=== PATIENT | male | born 1935 | race Caucasian/White ===

== ENCOUNTER 2023-04-01 22:00 | Inpatient (IN) | payer MEDICARE, OTHER, SELFPAY ==
--- NOTE | ~2023-04-01 | CT_ITS ---
CT of the Abdomen and Pelvis: Indication: Bleeding per rectum Technique: 2.5 mm axial scans were obtained through the abdomen and pelvis following intravenous adm inistration of 100 cc of Omnipaque 350. Dose reduction technique was used on this scan by utilizing a utomated exposure control and iterative reconstruction technique. The dose-length product (DLP) was 3 92.54 mGy-cm. Findings: Scans through the lung bases are unremarkable. The liver, spleen, pancreas, adrenals and kidneys are within normal limits. Gallbladder appears to be absent. There are atherosclerotic calcifications of the aorta. No lymphadenopathy. No bowel obstruction or bowel wall thickening. There is prominent stool at the rectum. There is no ev idence to suggest acute appendicitis. Images through the pelvis are degraded by streak artifact from right hip arthroplasty. Urinary bladde r unremarkable. No ascites. Impression: Probable fecal impaction/constipation. No acute findings evident. Reviewed, dictated and finalized at [facility]. Impression: Probable fecal impaction/constipation. No acute findings evident.
--- NOTE | ~2023-04-01 | XR_ITS ---
Portable chest x-ray Comparison: 12/26/2018 Clinical History: Chest pain Findings: Lungs are clear, without focal consolidation or pleural effusion. Cardiomediastinal silho uette is stable, status post CABG. Bones and soft tissues are unremarkable. Impression: Clear lungs. Reviewed, dictated and finalized at location . Impression: Clear lungs.
--- NOTE | ~2023-04-01 | XR_ITS ---
XR abdomen/kub 1V 04/02/2023 10:08 INDICATION: Fecal impaction TECHNIQUE: KUB COMPARISON: None FINDINGS: Bowel gas pattern is normal. There is no evidence of free air, mass, organomegaly, ascites or obstruction. No abnormal calculi are seen. The bones appear intact. There is a right hip arthro plasty. Severe lumbar spondylosis. 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 IMPRESSION: 1: No acute abdominal abnormality identified. Reviewed, dictated and finalized at location B.
[2023-04-01 22:06] VITALS: BP 181/88; PULSE 105; RESP 16; TEMP 37.4; O2SAT 97
--- NOTE | 2023-04-01 23:48 | ED.GIBLEED ---
HPI - GI Bleed General Chief complaint: GI Bleed <Marlen Cope PA-C - Last Filed: 04/02/23 17:03> Stated complaint: constipation, bright red rectal bleeding <Marlen Cope PA-C - Last Filed: 04/02/23 17:03> Time Seen by Provider: 04/01/23 23:16 <Marlen Cope PA-C - Last Filed: 04/02/23 17:03> History of Present Illness HPI Narrative: 87-year-old male reports for evaluation of bright red blood per rectum and diarrhea that started today after he took a laxative. Patient states he felt like he was constipated, took a laxative and has had multiple episodes of diarrhea since with bright red blood on the toilet paper with bowel movements and associated rectal pain. He denies abdominal pain, nausea or vomiting, melena, fever. While in the ED, he began complaining of chest pain, lasting seconds over his left anterior chest that occurred while he was laying in the exam bed. He has not experienced any more CP while in the ED. Denies shortness of breath, focal numbness or weakness. States he is not on a blood thinner. <Marlen Cope PA-C - Last Filed: 04/02/23 17:03> Related Data Home medications: Home Medications Medication Instructions Recorded Confirmed acetaminophen 650 mg tablet 650 mg PO Q6H PRN Pain (Scale 04/03/23 04/03/23 Score 1-3) alendronate 70 mg tablet 70 mg PO WEEKLY 04/03/23 04/03/23 calcium carbonate 500 mg calcium 1,000 mg PO DAILY 04/03/23 04/03/23 (1,250 mg) tablet cholecalciferol (vitamin D3) 25 1,000 unit PO DAILY 04/03/23 04/03/23 mcg (1,000 unit) capsule (Vitamin D3) metoprolol tartrate 25 mg tablet 25 mg PO BID 04/03/23 04/03/23 pantoprazole 40 mg tablet,delayed 40 mg PO Q12H 04/03/23 04/03/23 release vitamins A,C,X-ugtn-qbasan 2,148 1 tablet PO BID 04/03/23 04/03/23 mcg-113 mg-45 mg-17.4 mg tablet (PreserVision AREDS) <Marlen Cope PA-C - Last Filed: 04/02/23 17:03> Allergies/Adverse reactions: Allergies Allergy/AdvReac Type Severity Reaction Status Date / Time No Known Allergies Allergy Unknown Verified 04/03/23 07:34 <Marlen Cope PA-C - Last Filed: 04/02/23 17:03> Review of Systems Review of Systems: CONSTITUTIONAL: Denies fever, chills EYES: Denies visual changes, redness, or discharge. ENT: Denies rhinorrhea, congestion, sore throat, or otalgia. CARDIOVASCULAR: Denies chest pain, palpitations, or edema. RESPIRATORY: Denies cough or dyspnea. GASTROINTESTINAL: See HPI GENITOURINARY: Denies dysuria or hematuria. SKIN: Denies rash or itching. MUSCULOSKELETAL: Denies back pain, joint pain, or myalgia. NEUROLOGIC: Denies headache, numbness, dizziness, or weakness. PSYCHIATRIC: Denies anxiety or depression. <Marlen Cope PA-C - Last Filed: 04/02/23 17:03> [facility] Surgical History Surgical History: Surgical History (Updated 04/03/23 @ 07:22 by Moises Santos MD) Hx of CABG <Marlen Cope PA-C - Last Filed: 04/02/23 17:03> Social History Social History: Social History Smoking packs per day: 1 Smoking cigarettes per day: 20.0 Years smoked: 40 Smoking pack-years: 40.00 Smoking status: Former smoker Alcohol intake: former Substance use: current Lack of Transportation: No Lack of Food: Never True Current Housing: I Have Housing Concerned About Future Housing: No Difficulty Paying Gas/Electric Bills: No Difficulty Paying for Meds: No Currently Unemployed: No Education: Grade School Difficulty w/ Childcare or Family Care: No Spiritual care concerns: No <Marlen Cope PA-C - Last Filed: 04/02/23 17:03> Exam Narrative: GENERAL: Well-appearing, in no acute distress. Patient resting comfortably in exam bed. He is pleasant and conversational. HEAD: Normocephalic EYES: PERRLA ENT: Nares clear. Mucous membranes moist. Oropharynx without tonsillar hypertrophy exudate or other lesion
[2023-04-02] VITALS (12 sets, daily range): BP systolic 118–170; BP diastolic 67–75; PULSE 62–95; RESP 16–18; TEMP 36.4–37; O2SAT 95–100; BMI 19.9
--- NOTE | 2023-04-02 00:20 | ECG_ITS ---
Measurements Intervals [place] Rate: 107 P: UT: 0 QRS: 64 QRSD: 103 T: 6 QT: 358 QTc: 478 Interpretive Statements ATRIAL FIBRILLATION WITH RAPID VENTRICULAR RESPONSE VENTRICULAR PREMATURE COMPLEXES VOLTAGE CRITERIA FOR LVH BORDERLINE ST-T WAVE ABNORMALITY- ANTEROLAT/INF LEADS ABNORMAL ECG COMPARED TO ECG 12/26/2018 08:46:10 HEART RATE HAS INCREASED ST (T WAVE) DEVIATION NOW PRESENT Electronically Signed On 04-02-2023 7:37:07 CDT by John Garcia D.O.
[2023-04-02 00:29] LABS: Basophils Percent Auto 0.2 % (0.2-1.2); Eosinophils Percent Auto 0.2 % (0-4.4); Hematocrit 47.4 % (42.0-52.0); Hemoglobin 15.9 g/dL (14.0-18.0); Immature Granulocyte Absolute 0.05 K/mm3 (0.00-0.031); Immature Granulocyte Percent A 0.3 % (0-0.5); Lymphocytes Absolute Auto 0.72 K/mm3 (0.9-3.2); Lymphocytes Percent Auto 4.9 % (18.3-44.2); Mean Corpuscular HGB Conc 33.5 g/dl (32-36); Mean Corpuscular Hemoglobin 32.1 pg (26-34); Mean Corpuscular Volume 95.6 fl (80-100); Mean Platelet Volume 10.3 fl (7.4-10.4); Monocytes Absolute Auto 1.2 K/mm3 (0.1-0.6); Monocytes Percent Auto 8.5 % (2.6-8.5); Neutrophils Absolute Auto 12.6 K/mm3 (1.3-6.7); Neutrophils Percent Auto 85.9 % (45.5-73.1); Platelet Count Result 224 k/mm3 (150-375); Red Blood Count 4.96 M/mm3 (4.6-6.20); Red Cell Distribution Width 13.6 % (11.5-14.5); White Blood Count 14.7 K/mm3 (4.5-10.0)
[2023-04-02] MEDS: ACETAMINOPHEN 500 MG TABLET 1000 MG PO (00:29)
[2023-04-02] MEDS: SODIUM CHLORIDE 0.9% IV 1,000 ML 999 ML IV CONT (00:30)
[2023-04-02 00:48] LABS: Partial Thromboplastin Time 26.3 SECONDS (22.3-36.8)
[2023-04-02 00:52] LABS: Alanine Aminotransferase 18 U/L (6-50); Alkaline Phosphatase 94 U/L (38-126); Anion Gap 8 mmol/L (8-16); Aspartate Amino Transferase 35 U/L (17-59); Bilirubin,Total 1.5 mg/dL (0.2-1.3); Blood Urea Nitrogen 9 mg/dL (9-20); Calcium 8.8 mg/dL (8.4-10.2); Carbon Dioxide 26 mmol/L (22-30); Chloride 104 mmol/L (98-107); Estimated CRCL calculation 57 ml/min; Estimated Glomerular Filt Rate > 60; Glucose 115 mg/dL (65-110); Lipase 44 U/L (23-300); Potassium 3.5 mmol/L (3.4-5.0); Sodium 138 mmol/L (137-145)
[2023-04-02 01:08] LABS: NT Pro B Type Natriuretic Pept 2420 pg/mL (19.9-100); Troponin I 0.036 ng/mL (0.000-0.034)
[2023-04-02 03:23] LABS: Troponin I 0.118 ng/mL (0.000-0.034)
--- NOTE | 2023-04-02 03:43 | ECHO_ITS ---
Patient Info Name: Sukhwinder Blanco Age: 87 years : 1935 Gender: Male Ht: 69 in Wt: 158 lbs BSA: 1.87 m2 HR: 83 bpm BP: 150 / 75 mmHg Heart Rhythm: Atrial Fibrillation Technical Quality: Fair Exam Date: 04/02/2023 10:06 AM Exam Location: [facility] Pulmonary Patient Status: Inpatient Admit Date: 04/02/2023 Staff Ordering Physician: Kimmie Engle M.A., MD Panel Machine Setter: Estefania Lau RDCS Attending Provider: Rl Juarez MD Referring Physician: Bryant MCKEON; Exam Type: CA echo doppler color flow Study Info Indications - elevated troponin Complete two-dimensional, color flow and Doppler transthoracic echocardiogram is performed. Summary 1. Complete two-dimensional, color flow and Doppler transthoracic echocardiogram is performed. 2. Normal left ventricular size with concentric LVH and good systolic function. 3. Severe left atrial enlargement. 4. Aortic valve stenosis which appears moderate on 2D and M-mode imaging and severe on Doppler. 5. Atrial fibrillation. Left Ventricular Outflow Tract Name Value Normal LVOT 2D LVOT Diameter 1.7 cm LVOT Doppler LVOT Peak Gradient 2 mmHg LVOT Mean Gradient 1 mmHg LVOT VTI 9 cm LVOT VTI/AV VTI Ratio 0.2 LVOT Stroke Volume 21 ml LVOT CO 1.3 l/min LVOT CI 0.7 l/min/m2 Pulmonic Valve Name Value Normal RVOT Doppler RVOT Peak Gradient 2 mmHg PV Doppler PV Peak Gradient 4 mmHg Mitral Valve Name Value Normal MV Doppler MV Decel Comal 273 cm/s2 MV PHT 76 ms MV Area (PHT) 2.9 cm2 4.0-5.0 MV Regurgitation Doppler MR Peak Gradient 125 mmHg MV Diastolic Function MV E Peak Velocity 72 cm/s MV A Peak Velocity 1 cm/s MV E/A 87.9 MV Decel Time 262 ms MV Annular TDI MV E/e' (Septal) 11.1 <=8.0 MV E/e' (Lateral) 7.0 <=8.0 MV E/e' (Average) 9.1 Tricuspid Valve
--- NOTE | 2023-04-02 03:47 | PM.IMHP ---
H&P: HPI History of Present Illness Date/Time: 04/02/23 03:47 Chief Complaint: 87 years old male presented to the hospital with bleeding per rectum of fresh blood started today patient was complaining of constipation patient took laxative start have multiple episodes of diarrhea then has episode of bleeding per rectum patient denies fever or chills at the ER patient had 1 episode of transient chest pain on the left side no radiation lasted for few seconds while the ER physician was examining the patient troponin was mildly elevated, CT scan of the abdomen and pelvis was done shows stool impaction with possible stercoral colitis patient was admitted to the hospital for further evaluation and treatment of chest pain associated with elevated troponin stool impaction associated with stercoral colitis. patient said that he takes multiple medication in the past who was also on oral anticoagulation but was stopped patient is poor historian pending old records Review of Systems Review of Systems: Patient is poor historian Meds Home Medications and Allergies Allergies Allergy/AdvReac Type Severity Reaction Status Date / Time No Known Allergies Allergy Unknown Verified 12/26/18 15:25 Vital Signs Vital Signs - 24 hr 04/01/23 22:06 Temperature 99.3 F Pulse Rate 105 H Respiratory Rate 16 Blood Pressure 181/88 H Pulse Oximetry 97 Exam Narrative: GENERAL: no acute distress. HEAD: Normocephalic, atraumatic. NECK: Supple. No adenopathy, no masses. RESPIRATORY: Airway patent, respirations nonlabored. Clear to auscultation bilaterally, no rales, rhonchi, wheezing. CARDIOVASCULAR: Regular rate and rhythm without murmurs, rubs, or gallops. Peripheral pulses 2+ and equal bilaterally. ABDOMINAL: Soft, nontender, nondistended, no hepatosplenomegaly. Normoactive BS. MUSCULOSKELETAL: moves all extremities SKIN: Warm, dry, normal color. No rashes. NEURO: alert moves all extremities PSYCHIATRIC: Appropriate mood and affect. Normal interaction. H&P: Results Labs Labs: Short CBC 04/02/23 Range/Units 00:02 WBC 14.7 H (4.5-10.0) K/mm3 Hgb 15.9 (14.0-18.0) g/dL Hct 47.4 (42.0-52.0) % Plt Count 224 (150-375) k/mm3 [facility] 04/02/23 04/02/23 04/02/23 00:02 00:02 00:02 Sodium Cancelled 138 Potassium Cancelled 3.5 Chloride Cancelled Carbon Dioxide BUN Creatinine Glucose Calcium 04/02/23 04/02/23 04/02/23 00:02 00:02 00:02 Sodium Potassium Chloride 104 Carbon Dioxide Cancelled 26 BUN Cancelled 9 Creatinine Cancelled Glucose Calcium 04/02/23 04/02/23 04/02/23 00:02 00:02 00:02 Sodium Potassium Chloride Carbon Dioxide BUN Creatinine 0.80 Glucose Cancelled 115 H Calcium Cancelled 8.8 Cardiac Enzymes 04/02/23 04/02/23 Range/Units 00:02 02:52 Troponin I 0.036 H* 0.118 H* D (0.000-0.034) ng/mL Liver Function 04/02/23 04/02/23 04/02/23 Range/Units 00:02 00:02 00:02 Total Bilirubin Cancelled 1.5 H AST Cancelled 35 ALT Cancelled Alkaline Phosphatase Albumin 04/02/23 04/02/23 04/02/23 Range/Units 00:02 00:02 00:02 Total Bilirubin AST ALT 18 Alkaline Phosphatase Cancelled 94 Albumin Cancelled 4.0 Assessment and Plan Assessment and plan (1) Fecal impaction: Code(s): K56.41 - Fecal impaction Status: Acute Assessment and Plan: associated with stercoral colitis and GI bleed give GoLYTELY GI consult IV antibiotics (2) Atrial fibrillation with RVR: Code(s): I48.91 - Unspecified atrial fibrillation Status: Acute Assessment and Plan: probable new onset AFib no plan for anticoagulation for now as patient has GI bleed as needed IV metoprolol cardiology eval TSH echo (3) Elevated troponin: Code(s): R77.8 - Other specified abnormalities of plasma proteins Status: Acute
--- NOTE | 2023-04-02 03:49 | PC.NURSE ---
Pt was unable to retain soap suds enema for longer than 2 minutes. Pt used his own fingers to manually disimpact himself. He passed a large amount of stool in the toilet and states he feels better.
--- NOTE | 2023-04-02 04:07 | PC.NURSE ---
Unable to complete med reconciliation d/tpt did not bring a list and he does not know what medications he takes. [facility] at this time.
--- NOTE | 2023-04-02 04:17 | PM.IMHP ---
H&P: HPI History of Present Illness Date/Time: 04/02/23 04:17 Chief Complaint: 87 years old male presented to the hospital with bleeding per rectum patient has constipation for the last few days started oral laxative developed episodes of diarrhea then patient has episode of bleeding per rectum with chunks of blood according to the patient in the past patient was on oral anticoagulation but currently he is not on any oral anticoagulation at the ER patient also was found to have AFib patient is poor historian did not confirm history of AFib also has elevated troponin has 1 episode of chest pain lasted for few seconds in the ER resulted with mild elevated troponin no significant EKG changes patient also has elevated BNP CT scan of the abdomen showed stool impaction with stercoral colitis patient was admitted the hospital for further evaluation and treatment of GI bleed hypertensive urgency leukocytosis chest pain with elevated troponin Review of Systems Review of Systems: Patient is poor historian Meds Home Medications and Allergies Allergies Allergy/AdvReac Type Severity Reaction Status Date / Time No Known Allergies Allergy Unknown Verified 12/26/18 15:25 Vital Signs Vital Signs - 24 hr 04/01/23 22:06 Temperature 99.3 F Pulse Rate 105 H Respiratory Rate 16 Blood Pressure 181/88 H Pulse Oximetry 97 Exam Narrative: GENERAL: no acute distress. HEAD: Normocephalic, atraumatic. NECK: Supple. No adenopathy, no masses. RESPIRATORY: Airway patent, respirations nonlabored. Clear to auscultation bilaterally, no rales, rhonchi, wheezing. CARDIOVASCULAR: Regular rate and rhythm without murmurs, rubs, or gallops. Peripheral pulses 2+ and equal bilaterally. ABDOMINAL: Soft, nontender, nondistended, no hepatosplenomegaly. Normoactive BS. MUSCULOSKELETAL: moves all extremities SKIN: Warm, dry, normal color. No rashes. NEURO: alert moves all extremities PSYCHIATRIC: Appropriate mood and affect. Normal interaction. H&P: Results Labs Labs: Short CBC 04/02/23 Range/Units 00:02 WBC 14.7 H (4.5-10.0) K/mm3 Hgb 15.9 (14.0-18.0) g/dL Hct 47.4 (42.0-52.0) % Plt Count 224 (150-375) k/mm3 [facility] 04/02/23 04/02/23 04/02/23 00:02 00:02 00:02 Sodium Cancelled 138 Potassium Cancelled 3.5 Chloride Cancelled Carbon Dioxide BUN Creatinine Glucose Calcium 04/02/23 04/02/23 04/02/23 00:02 00:02 00:02 Sodium Potassium Chloride 104 Carbon Dioxide Cancelled 26 BUN Cancelled 9 Creatinine Cancelled Glucose Calcium 04/02/23 04/02/23 04/02/23 00:02 00:02 00:02 Sodium Potassium Chloride Carbon Dioxide BUN Creatinine 0.80 Glucose Cancelled 115 H Calcium Cancelled 8.8 Cardiac Enzymes 04/02/23 04/02/23 Range/Units 00:02 02:52 Troponin I 0.036 H* 0.118 H* D (0.000-0.034) ng/mL Liver Function 04/02/23 04/02/23 04/02/23 Range/Units 00:02 00:02 00:02 Total Bilirubin Cancelled 1.5 H AST Cancelled 35 ALT Cancelled Alkaline Phosphatase Albumin 04/02/23 04/02/23 04/02/23 Range/Units 00:02 00:02 00:02 Total Bilirubin AST ALT 18 Alkaline Phosphatase Cancelled 94 Albumin Cancelled 4.0 Assessment and Plan Assessment and plan (1) Fecal impaction: Code(s): K56.41 - Fecal impaction Status: Acute Assessment and Plan: associated with stercoral colitis and GI bleed give GoLYTELY GI consult IV antibiotics (2) Atrial fibrillation with RVR: Code(s): I48.91 - Unspecified atrial fibrillation Status: Acute Assessment and Plan: probable new onset AFib no plan for anticoagulation for now as patient has GI bleed as needed IV metoprolol cardiology eval TSH echo (3) Elevated troponin: Code(s): R77.8 - Other specified abnormalities of plasma proteins Status: Acute Assessment a
--- NOTE | 2023-04-02 04:55 | ADMGEN ---
This patient, Sukhwinder Blanco, was admitted to IMU Room 202-01. Patient/family oriented to hospital policies and general routines including ID bracelet, bed and alarms, visiting hours, pain management, procedures, bathroom and other care routines, personal items, smoking policy, room service/diet, and visiting hours. Information on how to activate the Rapid Response Team has been discussed. Patient/Family are encouraged to report perceived risks to care and to ask questions if they do not understand what they are told or what they should do.
[2023-04-02] MEDS: FUROSEMIDE INJ 40 MG/4 ML VIAL IV PUSH (05:24)
[2023-04-02] MEDS: metroNIDAZOLE 500 MG/ISO 100ML 500 MG/100 ML BAG 100 MG IVPB (05:26)
[2023-04-02 07:15] LABS: Basophils Percent Auto 0.2 % (0.2-1.2); Eosinophils Percent Auto 0.2 % (0-4.4); Hematocrit 44.1 % (42.0-52.0); Hemoglobin 15.1 g/dL (14.0-18.0); Hemoglobin 15.4 g/dL (14.0-18.0); Immature Granulocyte Absolute 0.05 K/mm3 (0.00-0.031); Immature Granulocyte Percent A 0.4 % (0-0.5); Lymphocytes Absolute Auto 1.39 K/mm3 (0.9-3.2); Lymphocytes Percent Auto 10.9 % (18.3-44.2); Mean Corpuscular HGB Conc 33.5 g/dl (32-36); Mean Corpuscular Hemoglobin 31.8 pg (26-34); Mean Corpuscular Volume 94.8 fl (80-100); Mean Platelet Volume 9.9 fl (7.4-10.4); Monocytes Absolute Auto 1.2 K/mm3 (0.1-0.6); Monocytes Percent Auto 9.2 % (2.6-8.5); Neutrophils Percent Auto 79.1 % (45.5-73.1); Platelet Count Result 221 k/mm3 (150-375); Red Blood Count 4.85 M/mm3 (4.6-6.20); Red Cell Distribution Width 13.8 % (11.5-14.5); White Blood Count 12.7 K/mm3 (4.5-10.0)
[2023-04-02 07:30] LABS: Alanine Aminotransferase 17 U/L (6-50); Albumin Level 3.5 g/dL (3.5-5.1); Alkaline Phosphatase 83 U/L (38-126); Anion Gap 5 mmol/L (8-16); Aspartate Amino Transferase 29 U/L (17-59); Bilirubin,Total 1.5 mg/dL (0.2-1.3); Blood Urea Nitrogen 10 mg/dL (9-20); Calcium 8.2 mg/dL (8.4-10.2); Carbon Dioxide 27 mmol/L (22-30); Chloride 105 mmol/L (98-107); Estimated CRCL calculation 49 ml/min; Estimated Glomerular Filt Rate > 60; Glucose 107 mg/dL (65-110); Potassium 3.6 mmol/L (3.4-5.0); Sodium 137 mmol/L (137-145)
[2023-04-02 07:42] LABS: Troponin I 0.221 ng/mL (0.000-0.034)
[2023-04-02 07:48] LABS: CRP 1.3 mg/dL (<1.0)
[2023-04-02] MEDS: PANTOPRAZOLE SODIUM IV 40 MG VIAL IV PUSH ×2 (08:50→16:38)
[2023-04-02] MEDS: polyethylene glycoL 3350 238 GM BOTTLE PO (11:14)
--- NOTE | 2023-04-02 11:14 | PM.CNCAR ---
Assessment and Plan Assessment and plan (1) Elevated troponin: Code(s): R77.8 - Other specified abnormalities of plasma proteins Status: Acute Plan This is an elderly gentleman with longstanding coronary artery disease and probably has chronic atrial fibrillation from what he tells me. He enters the hospital here with some constipation and rectal bleeding. His troponin levels were slightly elevated I have no idea as to why they were drawn in the 1st place. He has reasonable heart rate control he is receiving some intravenous metoprolol. It is highly likely that he is receiving rate control medications from his physicians at the [facility]. At this point my only cardiac recommendation would be to obtain that medication list in place him back on the medications that his physicians have him on at the [facility]. Presumably he has a concern or at least a relative contraindication to anticoagulation since he remembers being on apixaban in the past and his physician at the [facility] stopping it for some reason. For that reason I do not believe it is prudent or appropriate for us to resume anticoagulation here at [place]. He does not require an ischemia workup since he has no ischemic symptoms. When the primary team is comfortable he can be discharged and I will presume he will continue to follow-up with his established physicians at the [facility] following discharge. Ayan Aguilar MD [facility] History of Present Illness History of Present Illness Consult date/time: 04/02/23 11:14 Reason For Visit: Fecal Impaction,Elevated Troponins,Atrial Fibrilla Narrative: This is an 87-year-old man I am seeing today at the request of the hospitalist because of atrial fibrillation and elevation of his troponin level. The patient is in the IMU resting comfortably and upon awakening feels well and does not have any complaints. He came to the hospital emergency room yesterday because of constipation and some rectal bleeding. The patient states that he does have occasional episodes of problematic constipation for which she uses laxatives as needed and typically can stimulate a good bowel movement and resolve the situation he came to emergency room because this was not working any was having some pain and rectal bleeding. He was not having any other symptomatology. When he came in to be evaluated it was noticed that he was in atrial fibrillation with a somewhat rapid ventricular response. For reasons that are not explained in the chart troponin levels were drawn the after elevated slightly to 0.2 that has triggered a consult for me to see him today. The patient says that he has a history of coronary artery disease and underwent coronary artery bypass grafting over [address] [facility]. He in recent years moved to this area and sees physicians at and terminal makeup operator at the [facility] where he receives his medical care. We have none of the records available to that at the time of this dictation. The patient is not sure about what medications he is on although he does remember being on apixaban in the past and that his physician at the [facility] had stopped the medication for reasons that are not available to us at this hospital. He has received orders for some intravenous beta-wendy and hydralazine for his heart rate and his blood pressure. None of his established/outpatient home medications are listed on chart he says he is on a variety of medications from his physicians at the [facility] but is not aware of any of the medications or the dosages. He reports that since his coronary bypass operation he has been doing well he does not remember being hospitalized for a cardiac problems in the intervening several decades. He he is not aware of the diagnosis of atrial fibrillation. He is currently in atrial fibrillation with a heart rate in the 80s and is hemodynamically stable. Review of Systems Constitutional: Constitutional: Reports no additional constitutional c
--- NOTE | 2023-04-02 12:12 | WPDGICN ---
Assessment and Plan Assessment and plan (1) Fecal impaction: Code(s): K56.41 - Fecal impaction Status: Acute Assessment and Plan: He states that he frequently becomes constipated but manages to deal with it with a mild laxative. This time it became impossible for him to pass stool except for slight oozing of liquid. (2) GI bleed: Code(s): K92.2 - Gastrointestinal hemorrhage, unspecified Status: Acute Assessment and Plan: He began passing blood yesterday with attempts to have a bowel movement. Although he has atrial fibrillation, he states that he is not at present time on anticoagulant therapy. Plan Will prescribe MiraLax solution as a bowel prep more last to help remedy constipation. GI Consult Note Consult date/time: 04/02/23 12:12 HPI: Sukhwinder Blanco is a 87 year old male Who presented to the emergency room with rectal bleeding and constipation. He took a laxative but had only few loose stools and several chunks of blood. The patient states he gets constipated from time to time but usually relieved with an oral laxative without difficulty. CT scan showed fecal impaction . he denies abdominal pain or rectal pain but does have pressure in her rectum. 4 L of GoLYTELY had been ordered by the emergency room physician but apparently not given to the patient. Review of Systems Review of Systems: All systems reviewed & are unremarkable except as noted in HPI and below PMFSH Social History Social History Smoking packs per day: 1 Smoking cigarettes per day: 20.0 Years smoked: 40 Smoking pack-years: 40.00 Smoking status: Former smoker Alcohol intake: former Substance use: current Lack of Transportation: No Lack of Food: Never True Current Housing: I Have Housing Concerned About Future Housing: No Difficulty Paying Gas/Electric Bills: No Difficulty Paying for Meds: No Currently Unemployed: No Education: Grade School Difficulty w/ Childcare or Family Care: No Spiritual care concerns: No Meds Home Medications and Allergies Allergies Allergy/AdvReac Type Severity Reaction Status Date / Time No Known Allergies Allergy Unknown Verified 12/26/18 15:25 Vital Signs Vital Signs - 24 hr 04/01/23 22:06 04/02/23 06:00 04/02/23 06:49 Temperature 37.4 C Pulse Rate 105 H 83 Respiratory Rate 16 Blood Pressure 181/88 H Pulse Oximetry 97 Oxygen Delivery Room Air 04/02/23 04:50 04/02/23 07:42 04/02/23 08:00 Temperature 36.8 C 36.9 C Pulse Rate 79 71 75 Respiratory Rate 16 16 Blood Pressure 150/75 H 118/73 Pulse Oximetry 97 95 100 Oxygen Delivery Room Air 04/02/23 08:00 04/02/23 10:00 Temperature Pulse Rate 78 76 Respiratory Rate Blood Pressure Pulse Oximetry Oxygen Delivery Exam Const: General: cooperative and healthy appearing Orientation/consciousness: patient oriented x3 HENMT: Head: normal to inspection Ears: hearing grossly normal bilaterally Mouth: Yes Normal oral and palatal mucosa present Eyes: General: appearance normal, both eyes and all related structures Neck: Neck: normal visual inspection Chest: Chest palpation & inspection: normal inspection of the chest Resp: Effort & Inspection: normal respiratory effort Auscultation: clear to auscultation bilaterally Cardio: Rate: regular rate Rhythm: regular rhythm GI: Inspection: normal to inspection GI Palp: Yes No hepatosplenomegaly present Auscultation: normal bowel sounds Skin: General skin exam: normal color and no jaundice Neuro: General: patient oriented x3 Speech: normal speech Results Labs 04/02/23 06:59 04/02/23 06:59 Labs: Short CBC 04/02/23 04/02/23 04/02/23 Range/Units 00:02 06:59 06:59 WBC 14.7 H 12.7 H (4.5-10.0) K/mm3 Hgb 15.9 15.1 15.4 (14.0-18.0) g/dL Hct 47.4 44.1 (42.0-52.0) % Plt Count 22
--- NOTE | 2023-04-02 15:22 | WPDGICN ---
Assessment and Plan Assessment and plan (1) GI bleed: Code(s): K92.2 - Gastrointestinal hemorrhage, unspecified Status: Acute Assessment and Plan: he began passing blood yesterday. He has had streaks of blood here. He states that he was passing chunks or clots at home. Hemoglobin is 15.4. We will continue to monitor. (2) Fecal impaction: Code(s): K56.41 - Fecal impaction Status: Acute Assessment and Plan: He has rectal discomfort and CT scan confirms what appears to be fecal impaction and stercoral proctitis (3) Constipation: Code(s): K59.00 - Constipation, unspecified Status: Acute Assessment and Plan: This is a chronic condition he generally treat with laxatives. He states that this time however was worse than ever and he is not having any success. (4) Perineal irritation: Code(s): L29.3 - Anogenital pruritus, unspecified Status: Acute Assessment and Plan: marked erythema in a radius of 5 cm from the anus. It is tender on palpation. No sign of abscess. (5) Leukocytosis: Code(s): D72.829 - Elevated white blood cell count, unspecified Status: Acute Assessment and Plan: white blood count was 14.7 yesterday 12.7 today. Etiology unknown Plan We have begun a bowel prep to help remove his impaction and give him relief. I will schedule him for colonoscopy to be done tomorrow morning. GI Consult Note Consult date/time: 04/02/23 15:22 HPI: Sukhwinder Blanco is a 87 year old male who presents emergency room complaining of rectal bleeding. He states he gets constipated from time to time but treats that with than [id number] laxative. This time the laxative did not work. He has been straining and passing blood. He is having pain in the rectal area. And has not passed any solid stools or several days. CT scan showed stool impaction with stercoral colitis. Patient does have atrial fibrillation but is not on anticoagulants at this time. He cannot recall when he had his last colonoscopy. Review of Systems Review of Systems: All systems reviewed & are unremarkable except as noted in HPI and below PMFSH Social History Social History Smoking packs per day: 1 Smoking cigarettes per day: 20.0 Years smoked: 40 Smoking pack-years: 40.00 Smoking status: Former smoker Alcohol intake: former Substance use: current Lack of Transportation: No Lack of Food: Never True Current Housing: I Have Housing Concerned About Future Housing: No Difficulty Paying Gas/Electric Bills: No Difficulty Paying for Meds: No Currently Unemployed: No Education: Grade School Difficulty w/ Childcare or Family Care: No Spiritual care concerns: No Meds Home Medications and Allergies Allergies Allergy/AdvReac Type Severity Reaction Status Date / Time No Known Allergies Allergy Unknown Verified 12/26/18 15:25 Vital Signs Vital Signs - 24 hr 04/01/23 22:06 04/02/23 06:00 04/02/23 06:49 Temperature 37.4 C Pulse Rate 105 H 83 Respiratory Rate 16 Blood Pressure 181/88 H Pulse Oximetry 97 Oxygen Delivery Room Air 04/02/23 04:50 04/02/23 07:42 04/02/23 08:00 Temperature 36.8 C 36.9 C Pulse Rate 79 71 75 Respiratory Rate 16 16 Blood Pressure 150/75 H 118/73 Pulse Oximetry 97 95 100 Oxygen Delivery Room Air 04/02/23 08:00 04/02/23 10:00 04/02/23 12:00 Temperature 37.0 C Pulse Rate 78 76 89 Respiratory Rate 18 Blood Pressure 133/70 Pulse Oximetry 98 Oxygen Delivery Exam Const: General: alert Orientation/consciousness: patient oriented x3 Resp: Auscultation: clear to auscultation bilaterally Cardio: Rhythm: regular rhythm GI: Inspection: normal to inspection GI Palp: Yes Soft to palpation, No Tenderness to palpation present (GI), Yes No hepatosplenomegaly present and No Palpable mass present
[2023-04-02] MEDS: BISACODYL 5 MG TABLET EC 10 MG PO ×2 (16:37→20:42)
[2023-04-03] VITALS (11 sets, daily range): BP systolic 110–153; BP diastolic 60–84; PULSE 62–92; RESP 18–23; TEMP 36.1–36.9; O2SAT 96–98
[2023-04-03] MEDS: POTASSIUM CHLORIDE 20 MEQ TABLET 40 MEQ PO (01:32)
[2023-04-03] MEDS: BISACODYL 5 MG TABLET EC 10 MG PO (02:27)
[2023-04-03 04:37] LABS: Basophils Percent Auto 0.3 % (0.2-1.2); Eosinophils Absolute Auto 0.5 K/mm3 (0-0.3); Eosinophils Percent Auto 4.6 % (0-4.4); Hematocrit 43.2 % (42.0-52.0); Hemoglobin 14.7 g/dL (14.0-18.0); Immature Granulocyte Absolute 0.02 K/mm3 (0.00-0.031); Immature Granulocyte Percent A 0.2 % (0-0.5); Lymphocytes Absolute Auto 1.85 K/mm3 (0.9-3.2); Lymphocytes Percent Auto 18.7 % (18.3-44.2); Mean Corpuscular Hemoglobin 31.9 pg (26-34); Mean Corpuscular Volume 93.7 fl (80-100); Mean Platelet Volume 10.1 fl (7.4-10.4); Monocytes Absolute Auto 1.1 K/mm3 (0.1-0.6); Monocytes Percent Auto 11.1 % (2.6-8.5); Neutrophils Absolute Auto 6.4 K/mm3 (1.3-6.7); Neutrophils Percent Auto 65.1 % (45.5-73.1); Platelet Count Result 202 k/mm3 (150-375); Red Blood Count 4.61 M/mm3 (4.6-6.20); Red Cell Distribution Width 13.6 % (11.5-14.5); White Blood Count 9.9 K/mm3 (4.5-10.0)
[2023-04-03 04:48] LABS: Alanine Aminotransferase 15 U/L (6-50); Albumin Level 3.3 g/dL (3.5-5.1); Alkaline Phosphatase 73 U/L (38-126); Anion Gap 5 mmol/L (8-16); Aspartate Amino Transferase 29 U/L (17-59); Bilirubin,Total 1.2 mg/dL (0.2-1.3); Blood Urea Nitrogen 7 mg/dL (9-20); Calcium 8.2 mg/dL (8.4-10.2); Carbon Dioxide 25 mmol/L (22-30); Chloride 104 mmol/L (98-107); Estimated CRCL calculation 53 ml/min; Estimated Glomerular Filt Rate > 60; Glucose 99 mg/dL (65-110); Magnesium 1.9 mg/dL (1.6-2.3); Potassium 3.3 mmol/L (3.4-5.0); Sodium 134 mmol/L (137-145)
--- NOTE | 2023-04-03 07:22 | WPDANESEPPF ---
Anes - Initial Pre Proc Eval Procedure: Operation Date: 04/03/23 08:00 Proposed Procedures p Colonoscopy - Ramirez Callejas MD Date/Time: 04/03/23 07:22 Surgeon: Rl Juarez MD Pre Op Diagnosis: Fecal Impaction,Elevated Troponins,Atrial Fibrilla Patient Data Age: 87 Gender: M Height: 1.75 m Weight: 58.6 kg Last Vital Signs Temp 36.3 C L 04/03/23 04:00 Pulse 82 04/03/23 06:00 Resp 18 04/03/23 04:00 BP 153/84 H 04/03/23 04:00 Pulse Ox 96 04/03/23 04:00 O2 Del Method Room Air 04/03/23 04:00 Allergies Allergy/AdvReac Type Severity Reaction Status Date / Time No Known Allergies Allergy Unknown Verified 12/26/18 15:25 Home Medications Medication Instructions Recorded Confirmed Type acetaminophen 650 mg tablet 650 mg PO Q6H PRN Pain (Scale 04/03/23 04/03/23 History Score 1-3) alendronate 70 mg tablet 70 mg PO WEEKLY 04/03/23 04/03/23 History calcium carbonate 500 mg calcium 1,000 mg PO DAILY 04/03/23 04/03/23 History (1,250 mg) tablet cholecalciferol (vitamin D3) 25 1,000 unit PO DAILY 04/03/23 04/03/23 History mcg (1,000 unit) capsule (Vitamin D3) metoprolol tartrate 25 mg tablet 25 mg PO BID 04/03/23 04/03/23 History pantoprazole 40 mg tablet,delayed 40 mg PO Q12H 04/03/23 04/03/23 History release vitamins A,C,E-surq-qydapj 2,148 1 tablet PO BID 04/03/23 04/03/23 History mcg-113 mg-45 mg-17.4 mg tablet (PreserVision AREDS) Laboratory Tests 04/02/23 04/03/23 06:59 04:16 WBC 9.9 K/mm3 (4.5-10.0) RBC 4.61 M/mm3 (4.6-6.20) Hgb 14.7 g/dL (14.0-18.0) Hct 43.2 % (42.0-52.0) MCV 93.7 fl (80-100) MCH 31.9 pg (26-34) MCHC 34.0 g/dl (32-36) RDW 13.6 % (11.5-14.5) Plt Count 202 k/mm3 (150-375) MPV 10.1 fl (7.4-10.4) Immature Gran % (Auto) 0.2 % (0-0.5) Neut % (Auto) 65.1 % (45.5-73.1) Lymph % (Auto) 18.7 % (18.3-44.2) [place] % (Auto) 11.1 H % (2.6-8.5) Eos % (Auto) 4.6 H % (0-4.4) Baso % (Auto) 0.3 % (0.2-1.2) Lymph # (Auto) 1.85 K/mm3 (0.9-3.2) [place] # (Auto) 1.1 H K/mm3 (0.1-0.6) Eos # (Auto) 0.5 H K/mm3 (0-0.3) Baso # (Auto) 0.0 K/mm3 (0.0-0.1) Abs Immat Gran (auto) 0.02 K/mm3 (0.00-0.031) Absolute Neuts (auto) 6.4 K/mm3 (1.3-6.7) Absolute Nucleated RBC 0.0 K/mm3 (0.0-0.012) Nucleated RBC % 0.0 % (0.0-0.2) Sodium 137 mmol/L 134 L mmol/L (137-145) (137-145) Potassium 3.6 mmol/L 3.3 L mmol/L (3.4-5.0) (3.4-5.0) Chloride 105 mmol/L 104 mmol/L (98-107) (98-107) Carbon Dioxide 27 mmol/L 25 mmol/L (22-30) (22-30) Anion Gap 5 L mmol/L 5 L mmol/L (8-16) (8-16) BUN 10 mg/dL 7 L mg/dL (9-20) (9-20) Creatinine 0.80 mg/dL 0.70 mg/dL (0.7-1.3) (0.7-1.3) Estim Creat Clear Calc 49 ml/min 53 ml/min Estimated GFR > 60 > 60 (59 - ) (59 - ) Glucose 107 mg/dL 99 mg/dL (65-110) (65-110) Calcium 8.2 L mg/dL 8.2 L mg/dL (8.4-10.2) (8.4-10.2) Magnesium 1.9 mg/dL (1.6-2.3) Total Bilirubin 1.5 H mg/dL 1.2 mg/dL (0.2-1.3) (0.2-1.3) AST 29 U/L 29 U/L (17-59) (17-59) ALT 17 U/L 15 U/L (6-50) (6-50) Alkaline Phosphatase 83 U/L 73 U/L (38-126) (38-126) Troponin I 0.221 H* D ng/mL (0.000-0.034) C-Reactive Protein 1.3 H mg/dL (<1.0) Total Protein 6.0 L g/dL 6.0 L g/dL (6.3-8.2) (6.3-8.2) Albumin 3.5 g/dL 3.3 L g/dL (3.5-5.1) (3.5-5.1) Patient hx anesthesia problems: none Family hx anesthesia problems: none Results Review: All pre-operative results and documents have been reviewed as part of the pre-operative evaluation. [facility] Surgical History Surgical History (Updated 04/03/23 @ 07:22 by Moises Santos MD) Hx of CABG Social History Social History (Reviewed 04/03/23 @ 07:22 by Moises
[2023-04-03] MEDS: LACTATED RINGERS 1,000 ML 150 ML IV CONT (07:24)
[2023-04-03] MEDS: ceFAZolin SODIUM 1 GM VIAL IV PUSH (07:25)
--- NOTE | 2023-04-03 07:47 | SUR.PHASEII ---
Pt pre op and recovery in Endo room 3.
[2023-04-03] MEDS: PANTOPRAZOLE SODIUM IV 40 MG VIAL IV PUSH (08:46)
--- NOTE | 2023-04-03 11:07 | PM.DS ---
DS: Admitting Diagnosis Discharge Date 04/03/2023 Admitting Diagnosis fecal impaction constipation DS: Discharge Diagnosis Discharge Diagnosis (1) Constipation: Code(s): K59.00 - Constipation, unspecified Status: Acute (2) Atrial fibrillation with RVR: Code(s): I48.91 - Unspecified atrial fibrillation Status: Acute (3) Fecal impaction: Code(s): K56.41 - Fecal impaction Status: Acute DS: Summary Hospital Course Hospital Course: Sukhwinder Blanco is a 87 year old male? who presents emergency room complaining of rectal bleeding.? He states he gets constipated from time to time but treats that with than lkgo-[id number] laxative.? This time the laxative did not work.? He has been straining and passing blood.? He is having pain in the rectal area.? And has not passed any solid stools or several days.? CT scan showed stool impaction with stercoral colitis.? Patient does have atrial fibrillation but is not on anticoagulants at this time.? He cannot recall when he had his last colonoscopy. GI was consulted. Patient underwent colonoscopy which showed rectal ulcer and internal hemorrhoids. Patient has been provided benzocaine for topical application. He has been advised to eat high-fiber diet and use MiraLax for constipation. cardiology was consulted for AFib but patient was not in AFib with RVR. Cardiology recommended to continue home medications and have the patient follow-up with his cage loader. Patient clinically stable and is being discharged home Time Spent with Patient Time attestation: Total time spent providing and/or coordinating discharge services: DS: Data Data Completed and Pending Pending studies at discharge: Pending at discharge 04/03/23 07:41 Surgical [PTH] Routine Labs on day of discharge: Labs from last 24 hours 04/03/23 04:16 WBC 9.9 RBC 4.61 Hgb 14.7 Hct 43.2 MCV 93.7 MCH 31.9 MCHC 34.0 RDW 13.6 Plt Count 202 MPV 10.1 Immature Gran % (Auto) 0.2 Neut % (Auto) 65.1 Lymph % (Auto) 18.7 [place] % (Auto) 11.1 H Eos % (Auto) 4.6 H Baso % (Auto) 0.3 Lymph # (Auto) 1.85 [place] # (Auto) 1.1 H Eos # (Auto) 0.5 H Baso # (Auto) 0.0 Abs Immat Gran (auto) 0.02 Absolute Neuts (auto) 6.4 Absolute Nucleated RBC 0.0 Nucleated RBC % 0.0 Sodium 134 L Potassium 3.3 L Chloride 104 Carbon Dioxide 25 Anion Gap 5 L BUN 7 L Creatinine 0.70 Estim Creat Clear Calc 53 Estimated GFR > 60 Glucose 99 Calcium 8.2 L Magnesium 1.9 Total Bilirubin 1.2 AST 29 ALT 15 Alkaline Phosphatase 73 Total Protein 6.0 L Albumin 3.3 L Preliminary micro results at discharge 04/02/23 07:07 Blood Culture - Preliminary Blood 04/02/23 06:59 Blood Culture - Preliminary Blood Discharge Plan Discharge Consulting providers: Ayan Aguilar; Ramirez Callejas Discharging Clinician: Rl Juarez Anticipated Discharge Date/Time: 04/03/23 11:05 Patient Disposition: Home, Self-Care Activity: no preference Diet: heart healthy and high fiber Patient Instructions: Antibiotic Form Stand Alone Forms: General Discharge Information Follow-up/Referrals: [facility] [Primary Care Provider] - Discharge Medications: [place] 20 % Ointment 1 applic topical Q4H PRN (Reason: Rectal Pain) Qty: 1 0RF Continued alendronate 70 mg Tablet 70 mg PO WEEKLY Rx Instructions: weekly acetaminophen 650 mg Tablet 650 mg PO Q6H PRN (Reason: Pain (Scale Score 1-3)) calcium carbonate 500 mg calcium (1,250 mg) Tablet 1,000 mg PO DAILY pantoprazole 40 mg Tablet,Delayed Release (Dr/Ec) 40 mg PO Q12H cholecalciferol (vitamin D3) [Vitamin D3] 25 mcg (1,000 unit) Capsule 1,000 unit PO DAILY metoprolol tartrate 25 mg Tablet 25 mg PO BID Patient Comments: has not been filled from [place] since 10/05/22 for a 90 day supply PreserVision AREDS 2,148 mcg-113
== END 2023-04-03 14:50 | disposition home or self-care (01) | DRG 394 ==
LOC: ANHED 04-02 03:37 → ANHIMU 04-02 04:39
PROVIDERS: Internal Medicine Gastroenterology; Admitting Provider Internal Medicine; Emergency Provider Physician Assistant; Visit Provider Hospitalist
PROC: 0DJD8ZZ Inspection of Lower Intestinal Tract, Via Natural or Artificial Opening Endoscopic (ICD-10-PCS; CPT 45378; principal; 2023-04-03 08:00)
DX: K62.6 Ulcer of anus and rectum (principal); K92.2 Gastrointestinal hemorrhage, unspecified; I48.91 Unspecified atrial fibrillation; K64.8 Other hemorrhoids; K59.00 Constipation, unspecified; L29.3 Anogenital pruritus, unspecified; K62.89 Other specified diseases of anus and rectum; D72.829 Elevated white blood cell count, unspecified; I16.0 Hypertensive urgency; I25.10 Atherosclerotic heart disease of native coronary artery without angina pectoris; Z95.1 Presence of aortocoronary bypass graft; Z87.891 Personal history of nicotine dependence
CPT/HCPCS: 36415; 71045; 74018; 74177; 80053; 83690; 83735; 83880; 84484; 85014; 85018; 85025; 85610; 85730; 86140; 86850; 86900; 86901; 87040; 88305; 93005; 93306; 96361; 96374; 96375; 99285; A9270; C9113; G0378; J0690; J0696; J1940; J2704; J7030; J7120; Q9967

== ENCOUNTER 2024-02-09 14:30 | Emergency (ER) | payer MEDICARE, OTHER, SELFPAY ==
[2024-02-09 15:20] VITALS: BP 152/86; PULSE 72; RESP 16; TEMP 36.7; O2SAT 98
== END 2024-02-09 15:38 | disposition left against medical advice (07) ==
DX: Z53.21 Procedure and treatment not carried out due to patient leaving prior to being seen by health care provider (principal)
CPT/HCPCS: 99199

== ENCOUNTER 2024-02-14 16:07 | Inpatient (IN) | payer MEDICARE, OTHER, MEDICAID, SELFPAY ==
[2024-02-14] VITALS (30 sets, daily range): BP systolic 107–157; BP diastolic 59–89; PULSE 44–95; RESP 12–25; TEMP 36.7; O2SAT 95–100; BMI 21.2
--- NOTE | ~2024-02-14 | MR_ITS ---
EXAMINATION: MR brain/brain stem wo con DATE: 02/16/2024 07:59 INDICATION: Confusion. TECHNIQUE: Magnetic resonance imaging (MRI) of the brain and brainstem was performed without intraven ous contrast. COMPARISON: Head CT 02/14/2024 FINDINGS: There are scattered areas of nonspecific increased T2-weighted signal intensity in the cere bral white matter and lore. There is no intracranial hemorrhage, acute infarction, or abnormal intrac ranial mass lesion. The ventricles are normal in size. There is mild mucosal thickening in the ethmoi d sinuses. The mastoid air cells are normal. There are likely changes of ocular lens replacement surg eries. IMPRESSION: 1. Extensive nonspecific cerebral white matter disease and pontine disease, which likely represents c hronic small vessel ischemic disease. Reviewed, dictated and finalized at location A. IMPRESSION: 1. Extensive nonspecific cerebral white matter disease and pontine disease, whi ch likely represents chronic small vessel ischemic disease.
--- NOTE | ~2024-02-14 | XR_ITS ---
EXAMINATION: XR chest 1V portable INDICATION: Altered mental status TECHNIQUE: Portable AP chest at 1719 hours COMPARISON: 04/02/2023 FINDINGS: The lungs are free of acute opacities. No pleural effusion or pneumothorax. The heart size is normal. Median sternotomy wires and mediastinal surgical clips are seen, likely from prior coronar y artery bypass grafting. A calcified nodule of the right lower lobe is consistent with old granuloma tous disease. IMPRESSION: 1. No acute cardiopulmonary abnormality. Reviewed, dictated and finalized at location F.
--- NOTE | ~2024-02-14 | CT_ITS ---
EXAMINATION: CT brain wo con DATE: 02/14/2024 17:27 INDICATION: Altered mental status and confusion TECHNIQUE: Computed tomography (CT) of the head was performed without intravenous contrast. Sagittal and coronal reconstructions were performed. The mA was adjusted according to patient size. Iterative reconstruction technique was employed. The dose-length product was 605.33 mGy-cm. COMPARISON: None FINDINGS: No acute intracranial hemorrhage, acute infarction or abnormal extra axial fluid collection. There is moderate scattered white matter hypoattenuation consistent with chronic small vessel ischemic diseas e. Symmetric prominence of the sulci and ventricles consistent with moderate age-appropriate diffuse cerebral volume loss. No mass/mass effect. Changes of bilateral intraocular lens replacement. There i s mucosal thickening in a pneumatized kareen delmi air cell. Remaining paranasal sinuses are clear. T he orbits and mastoid air cells are normal. Intracranial calcified cerebral atherosclerosis is noted. IMPRESSION: 1. No acute intracranial process. 2. Age-related changes in the brain including moderate diffuse volume loss and moderate scattered whi te matter hypoattenuation consistent with chronic small vessel ischemic disease. Reviewed, dictated and finalized at location A. IMPRESSION: 1. No acute intracranial process. 2. Age-related changes in the brain including moderate diffuse volume loss and moderate scattered white matter hypoattenuation consistent with chronic small v essel ischemic disease.
--- NOTE | 2024-02-14 16:25 | ECG_ITS ---
Measurements Intervals [place] Rate: 60 P: [place]: 0 QRS: 10 QRSD: 110 T: 19 QT: 421 QTc: 422 Interpretive Statements ATRIAL FIBRILLATION ABNORMAL ECG COMPARED TO ECG 04/02/2023 00:20:11 HEART RATE HAS DECREASED Electronically Signed On 02-14-2024 17:02:02 CDT by John Garcia D.O.
--- NOTE | 2024-02-14 17:00 | ED.AMS ---
HPI - Altered Mental Status General Chief Complaint: Altered Mental Status <Tiffani Mackey PA-C - Last Filed: 02/14/24 22:04> Stated Complaint: Altered mental status <Tiffani Mackey PA-C - Last Filed: 02/14/24 22:04> Time Seen by Provider: 02/14/24 16:59 <YESENIA Butler Last Filed: 02/14/24 22:04> Source: patient <Tiffani Mackey PA-C - Last Filed: 02/14/24 22:04> Mode of arrival: EMS <YESENIA Butler Last Filed: 02/14/24 22:04> Limitations: no limitations <Tiffani Mackey PA-C - Last Filed: 02/14/24 22:04> History of Present Illness HPI narrative: Patient is an 88-year-old male who presents to the ED with via EMS with report of altered mental status. Patient is currently residing at a local hotel while his home is reportedly being remodeled. He is unsure how he got to the ED. He is states EMS brought him from the hotel, but he is unsure who called for EMS. States he feels confused, does not know why he is here. States he remembers laying in bed earlier today. Unable to provide any other information. Denies any other acute complaints, just states he is afraid of what is going on with him. Denies focal weakness or numbness. Patient was found to have bed bugs in the ED. <Tiffani Mackey PA-C - Last Filed: 02/14/24 22:04> Related Data Home Medications: Home Medications Medication Instructions Recorded Confirmed acetaminophen 650 mg tablet 650 mg PO Q6H PRN Pain (Scale 04/03/23 04/03/23 Score 1-3) alendronate 70 mg tablet 70 mg PO WEEKLY 04/03/23 04/03/23 calcium carbonate 500 mg calcium 1,000 mg PO DAILY 04/03/23 04/03/23 (1,250 mg) tablet cholecalciferol (vitamin D3) 25 1,000 unit PO DAILY 04/03/23 04/03/23 mcg (1,000 unit) capsule (Vitamin D3) metoprolol tartrate 25 mg tablet 25 mg PO BID 04/03/23 04/03/23 pantoprazole 40 mg tablet,delayed 40 mg PO Q12H 04/03/23 04/03/23 release vitamins A,C,R-wnig-fvoqac 2,148 1 tablet PO BID 04/03/23 04/03/23 mcg-113 mg-45 mg-17.4 mg tablet (PreserVision AREDS) <Tiffani Mackey PA-C - Last Filed: 02/14/24 22:04> Allergies/Adverse Reactions: Allergies Allergy/AdvReac Type Severity Reaction Status Date / Time No Known Allergies Allergy Unknown Verified 04/03/23 07:34 <Tiffani Mackey PA-C - Last Filed: 02/14/24 22:04> Review of Systems Review of Systems: CONSTITUTIONAL: Denies fever, chills, or sweats. CARDIOVASCULAR: Denies chest pain. RESPIRATORY: Denies dyspnea. GASTROINTESTINAL: Denies abdominal pain, nausea, vomiting MUSCULOSKELETAL: Denies back pain, extremity pain, myalgia. NEUROLOGIC: See HPI. <Tiffani Mackey PA-C - Last Filed: 02/14/24 22:04> All systems reviewed & are unremarkable except as noted in HPI and below <Tiffani Mackey PA-C - Last Filed: 02/14/24 22:04> [facility] Surgical History Surgical History: Surgical History Hx of CABG <Tiffani Mackey PA-C - Last Filed: 02/14/24 22:04> Social History Social History: Social History Smoking packs per day: 1 Smoking cigarettes per day: 20.0 Years smoked: 40 Smoking pack-years: 40.00 Smoking status: Former smoker Alcohol intake: former Substance use: current Lack of Transportation: No Lack of Food: Never True Current Housing: I Have Housing Concerned About Future Housing: No Difficulty Paying Gas/Electric Bills: No Difficulty Paying for Meds: No Currently Unemployed: No Education: Grade School Difficulty w/ Childcare or Family Care: No Spiritual care concerns: No <Tiffani Mackey PA-C - Last Filed: 02/14/24 22:04> Exam Narrative: GENERAL: Elderly, frail, non-toxic, in no acute distress. HEAD: Normocephalic, atraumatic. RESPIRATORY: Airway patent, respirations non
[2024-02-14 17:26] LABS: Basophils Percent Auto 0.3 % (0.2-1.2); Eosinophils Absolute Auto 0.3 K/mm3 (0-0.3); Eosinophils Percent Auto 4.1 % (0-4.4); Hematocrit 34.9 % (42.0-52.0); Hemoglobin 11.5 g/dL (14.0-18.0); Immature Granulocyte Absolute 0.01 K/mm3 (0.00-0.031); Immature Granulocyte Percent A 0.2 % (0-0.5); Lymphocytes Absolute Auto 1.72 K/mm3 (0.9-3.2); Lymphocytes Percent Auto 26.9 % (18.3-44.2); Mean Corpuscular Hemoglobin 30.2 pg (26-34); Mean Corpuscular Volume 91.6 fl (80-100); Mean Platelet Volume 10.4 fl (7.4-10.4); Monocytes Absolute Auto 0.8 K/mm3 (0.1-0.6); Monocytes Percent Auto 11.9 % (2.6-8.5); Neutrophils Absolute Auto 3.6 K/mm3 (1.3-6.7); Neutrophils Percent Auto 56.6 % (45.5-73.1); Platelet Count Result 207 k/mm3 (150-375); Red Blood Count 3.81 M/mm3 (4.6-6.20); Red Cell Distribution Width 13.9 % (11.5-14.5); White Blood Count 6.4 K/mm3 (4.5-10.0)
[2024-02-14 17:36] LABS: Ethanol < 10 mg/dL (<10); INR 1.2; Prothrombin Time 15.4 Seconds (11.1-14.7)
[2024-02-14 17:37] LABS: Lactic Acid Reflex 0.9 mmol/L (0.7-2.0); Partial Thromboplastin Time 30.3 Seconds (22.3-36.8)
[2024-02-14 17:42] LABS: Alanine Aminotransferase 15 U/L (6-50); Albumin Level 3.3 g/dL (3.5-5.1); Alkaline Phosphatase 71 U/L (38-126); Anion Gap 2 mmol/L (8-16); Aspartate Amino Transferase 30 U/L (17-59); Blood Urea Nitrogen 11 mg/dL (9-20); Calcium 9.1 mg/dL (8.4-10.2); Carbon Dioxide 27 mmol/L (22-30); Chloride 104 mmol/L (98-107); Estimated CRCL calculation 32 ml/min; Estimated Glomerular Filt Rate 57; Glucose 95 mg/dL (65-110); Potassium 4.2 mmol/L (3.4-5.0); Sodium 133 mmol/L (137-145)
[2024-02-14 18:18] LABS: Creatine Kinase 74 U/L (55-170)
[2024-02-14 18:21] LABS: Bacteria Urine None Seen /hpf; Hyaline Casts Urine Present /lpf; Non Pathogenic Casts >20; RBC Urine 0-2 /hpf (0-2); Squamous Epithelial Cell Urine Occasional /hpf (Few); WBC Urine 0-5 /hpf (0-3)
[2024-02-14 18:46] LABS: Appearance Urine Clear (Clear); Color Urine Yellow (Yellow); Specific Grav Ur 1.015 (1.001-1.035); pH Urine 5.5 (5.0-9.0)
[2024-02-14 18:47] LABS: Blood Urine Negative (Negative); Glucose Urine UA Negative (Negative); Ketones Urine 1+ mg/dL (Negative); Protein Urine 1+ mg/dL (Negative)
[2024-02-14 18:48] LABS: Bilirubin Urine 1+ (Negative); Nitrate Urine Negative (Negative)
[2024-02-14 18:49] LABS: Add Urine Microscopic? YES; Leukocyte Esterase Ur Negative LEU/UL (Negative)
[2024-02-14 19:12] LABS: Magnesium 1.4 mg/dL (1.6-2.3)
[2024-02-14 19:23] LABS: Amphetamine Screen Urine Negative (Negative); Barbiturate Screen Urine Negative (Negative); Benzodiazepines Screen Urine Negative (Negative); Cannabinoid Screen Urine Negative (Negative); Cocaine Screen Urine Negative (Negative); Methadone Screen Urine Negative (Negative); Opiate Screen Urine Negative (Negative); Phencyclidine Screen Urine Negative (Negative)
--- NOTE | 2024-02-14 19:24 | PC.NURSE ---
Assumed care of pt. Bedside report from BOBY Sanchez. Pt laying per stretcher. Requested warm blanket. Denies any additional needs. Updated pt on pending lab work.
[2024-02-14] MEDS: SODIUM CHLORIDE 0.9% IV 1,000 ML 999 ML IV CONT ×2 (19:34→19:43)
[2024-02-14] MEDS: MAGNESIUM SULF 2 GM/WATER 50ML 2 GM/50 ML BAG IVPB (19:42)
--- NOTE | 2024-02-14 20:12 | PC.NURSE ---
Pt assisted with calling his son, Jean-Pierre.
[2024-02-14 20:19] LABS: Folic Acid 10.2 ng/mL (2.76->20)
--- NOTE | 2024-02-14 22:24 | PM.IMHP ---
H&P: HPI History of Present Illness Date/Time: 02/14/24 22:24 Chief Complaint: confusion Narrative: this is an 88-year-old male who was brought to the emergency room for evaluation of confusion, apparently patient has been residing at a local hotel his home is under restorative work. Patient is unable to provide any history he is oriented to person place and time but is confused as why his in the hospital he knows that he had episode of confusion but has no recollection of events. Has been his usual state of health. Preliminary workup has been essentially nonrevealing. EXAMINATION: XR chest 1V portable INDICATION: Altered mental status TECHNIQUE: Portable AP chest at 1719 hours COMPARISON: 04/02/2023 FINDINGS: The lungs are free of acute opacities. No pleural effusion or pneumothorax. The heart size is normal. Median sternotomy wires and mediastinal surgical clips are seen, likely from prior coronary artery bypass grafting. A calcified nodule of the right lower lobe is consistent with old granulomatous disease. IMPRESSION: 1. No acute cardiopulmonary abnormality. EXAMINATION: CT brain wo con DATE: 02/14/2024 17:27 INDICATION: Altered mental status and confusion TECHNIQUE: Computed tomography (CT) of the head was performed without intravenous contrast. Sagittal and coronal reconstructions were performed. The mA was adjusted according to patient size. Iterative reconstruction technique was employed. The dose-length product was 605.33 mGy-cm. COMPARISON: None FINDINGS: No acute intracranial hemorrhage, acute infarction or abnormal extra axial fluid collection. There is moderate scattered white matter hypoattenuation consistent with chronic small vessel ischemic disease. Symmetric prominence of the sulci and ventricles consistent with moderate age-appropriate diffuse cerebral volume loss. No mass/mass effect. Changes of bilateral intraocular lens replacement. There is mucosal thickening in a pneumatized kareen delmi air cell. Remaining paranasal sinuses are clear. The orbits and mastoid air cells are normal. Intracranial calcified cerebral atherosclerosis is noted. IMPRESSION: 1. No acute intracranial process. 2. Age-related changes in the brain including moderate diffuse volume loss and moderate scattered white matter hypoattenuation consistent with chronic small vessel ischemic disease. Review of Systems Review of Systems: ROS unobtainable: Yes unobtainable due to mental status ( confusion) [facility] Surgical History Surgical History Hx of CABG Social History Social History Smoking packs per day: 1 Smoking cigarettes per day: 20.0 Years smoked: 40 Smoking pack-years: 40.00 Smoking status: Former smoker Additional smoking assessment comments: QUIT SMOKING ABOUT 54YO Alcohol intake: never Substance use: never Do You Feel Safe in your Home?: Yes Lack of Transportation: No Lack of Food: Never True Current Housing: I Have Housing Concerned About Future Housing: No Difficulty Paying Gas/Electric Bills: No Difficulty Paying for Meds: No Currently Unemployed: No Education: Grade School Difficulty w/ Childcare or Family Care: No Spiritual care concerns: No Meds Home Medications and Allergies Home Medications Medication Instructions Recorded Confirmed Type acetaminophen 650 mg tablet 650 mg PO Q6H PRN Pain (Scale 04/03/23 02/14/24 History Score 1-3) alendronate 70 mg tablet 70 mg PO WEEKLY 04/03/23 02/14/24 History benzocaine 20 % topical ointment 1 applic topical Q4H PRN Rectal 04/03/23 02/14/24 Rx ([place]) Pain #1 g calcium carbonate 500 mg calcium 1,000 mg PO DAILY 04/03/23 02/14/24 History (1,250 mg) tablet cholecalciferol (vitamin D3) 25 1,000 unit PO DAILY 04/03/23 02/14/24 History mcg (1,000 unit) capsule (Vitamin D3) met
--- NOTE | 2024-02-14 22:36 | ADMGEN ---
This patient, Sukhwinder Blanco, was admitted to Medical Room 344-01. Patient/family oriented to hospital policies and general routines including ID bracelet, bed and alarms, visiting hours, pain management, procedures, bathroom and other care routines, personal items, smoking policy, room service/diet, and visiting hours. Information on how to activate the Rapid Response Team has been discussed. Patient/Family are encouraged to report perceived risks to care and to ask questions if they do not understand what they are told or what they should do.
--- NOTE | 2024-02-15 | ECHO_ITS ---
Patient Info Name: Sukhwinder Blanco Age: 88 years : 1935 Gender: Male Ht: 66 in Wt: 131 lbs BSA: 1.66 m2 HR: 61 bpm BP: 151 / 59 mmHg Technical Quality: Fair Exam Date: 02/15/2024 7:35 AM Exam Location: Echo Lab Patient Status: Inpatient Admit Date: 02/14/2024 Staff Ordering Physician: Indira Key MD Zipper Trimmer: Robyn Amador RDCS Attending Provider: Indira Key MD Referring Physician: Yesi TYSON; Exam Type: CA echo doppler color flow Study Info Indications R01.1 - Cardiac murmur, unspecified Complete two-dimensional, color flow and Doppler transthoracic echocardiogram is performed. Summary 1. Complete two-dimensional, color flow and Doppler transthoracic echocardiogram is performed. 2. Left ventricular chamber dimension is normal. 3. Left ventricular systolic function is normal, estimated at 60-65%. 4. Right ventricular chamber dimension is normal. 5. Right ventricular systolic function is reduced. 6. Left atrial chamber dimension is severely enlarged. 7. Right atrial chamber dimension is mildly enlarged. 8. There is severe aortic valve calcification. 9. There is moderate to severe aortic valve stenosis with a peak velocity of 294 cm/s, mean gradient of 20 mmHg, and aortic valve area of 0.7 cm2. 10. There is moderate mitral valve regurgitation. 11. There is mild tricuspid valve regurgitation. 12. There is mild pulmonic regurgitation. Left Ventricle Left ventricular chamber dimension is normal. Left ventricular systolic function is normal, estimated at 60-65%. There is no increased left ventricular wall thickness. Right Ventricle Right ventricular chamber dimension is normal. Right ventricular systolic function is reduced. Left Atria Left atrial chamber dimension is severely enlarged. Right Atria Right atrial chamber dimension is mildly enlarged. Atrial Septum Intact interatrial septum visualized by color flow imaging. Aortic Valve The aortic valve is trileaflet. There is moderate to severe aortic valve stenosis with a peak velocity of 294 cm/s, mean gradient of 20 mmHg, and aortic valve area of 0.7 cm2. There is severe aortic valve calcification. Pulmonic Valve The pulmonic valve is not well visualized. There is mild pulmonic regurgitation. Mitral Valve There is moderate mitral valve regurgitation. The mitral valve annulus is moderately calcified. Tricuspid Valve There is mild tricuspid valve regurgitation. Pericardium/Pleural There is no pericardial effusion. Inferior Vena Cava Normal inferior vena cava with <50% collapse upon inspiration consistent with elevated right atrial pressure, 8 mmHg. Aorta The aortic root size at the sinus of Valsalva is normal. Left Ventricular Outflow Tract Name Value Normal LVOT 2D LVOT Diameter 2.1 cm LVOT Doppler LVOT Peak Gradient 2 mmHg LVOT Mean Gradient 1 mmHg LVOT VTI 13 cm LVOT VTI/AV VTI Ratio 0.2 LVOT Stroke Volume 44 ml LVOT CO 2.6 l/min LVOT CI 1.6 l/min/m2 Pulmonic Valve ------
[2024-02-15 00:43] VITALS: BP 151/59; PULSE 121; RESP 21; TEMP 36.5; O2SAT 100
[2024-02-15 01:10] LABS: Magnesium 2.5 mg/dL (1.6-2.3)
[2024-02-15 06:00] VITALS: BP 123/53; PULSE 54; RESP 21; TEMP 36.5; O2SAT 100
--- NOTE | 2024-02-15 08:21 | PM.IMPN ---
Progress Note: A&P Assessment and Plan (1) Altered mental status: Qualifiers: Altered mental status type: unspecified Qualified Code(s): R41.82 - Altered mental status, unspecified Code(s): R41.82 - Altered mental status, unspecified Status: Acute Assessment and Plan: Patient continues to be pleasantly confused. He answers questions appropriately however throughout exam he is noticeably confused asking repeatedly if he is in [facility]. VS remain stable. Labs without leukocytosis, mild anemia. CMP unremarkable. No recent records to compare. EKG with atrial fibrillation and no significant ST changes. Known history of afib. Head CT with no acute intracranial process and age related changes. CXR with no cardiopulmonary abnormality. Urine drug screen negative. Alcohol negative. MRI ordered (2) Atrial fibrillation: Code(s): I48.91 - Unspecified atrial fibrillation Status: Acute Assessment and Plan: In a previous cardiology note they stated that there was likely concern or at least a relative contraindication to anticoagulation since he remembers being on apixaban in the past and his physician at the [facility] stopped it for some reason. Patient was noted to be tachycardic early this morning into the 120s. Restarted the home metoprolol 25 mg BID and heart rate has remained stable. Metoprolol 25 mg BID Time Spent With Patient Time with patient: 25 - 35 minutes Subjective Date/time seen: 02/15/24 08:21 Interval history: 88 year old male with past medical history of longstanding coronary artery disease s/p CABG and chronic atrial fibrillation presenting to the hospital for confusion. Patient continues to be pleasantly confused. He is able to answer his name, place, and time however throughout exam he would ask if he was at [facility]. He also stated that he had three sons, however he told care coordination that he had only one. Care coordination spoke with Haile in social work at the [facility] who states that the patient has a history of confusion and is unable to care for himself. Patient states that his apartment is under renovations causing him to stay at a hotel, however per care coordination the apartment is likely unhabitable based on what Haile had said. Per care coordination note patient denies further needs and plans to go home, however patient told me he wishes to go to a facility. Of note patient was found to have bed bugs in the ED. Patient is a poor historian and is unable to answer questions in regard to his current medications. He typically follows at [facility]. He does report having a prior CABG many years ago and chronic afib. In a previous cardiology note they stated that there was likely concern or at least a relative contraindication to anticoagulation since he remembers being on apixaban in the past and his physician at the [facility] stopped it for some reason. Patient was noted to be tachycardic early this morning into the 120s. Restarted the home metoprolol 25 mg BID and heart rate has remained stable. Spoke with Everton (son) who notes that his father has been more forgetful lately. He is unsure of any of his fathers medical history or his current medications. While speaking with the patient he states that he has been more depressed lately stating nothings worked out for me . He stated that last week he thought he wanted the lord to take him away , but he cannot hurt himself because then he would not get into heaven. Patient denies active thoughts of wanting to harm himself and does not have a plan. Review of Systems Review of Systems: All systems reviewed & are unremarkable except as noted in HPI and below Exam Narrative: AF HR 72 RR 18 SpO2 100 BP 132/70 General: male in no acute respiratory distress who is nontoxic appearing, lying semi recumbent in bed. HEENT: Normocephalic. Atraumatic. Pupils equal round reactive to light. Extraocular movement intact. Sclera clear and ani
[2024-02-15 09:02] LABS: Hematocrit 33.8 % (42.0-52.0); Mean Corpuscular HGB Conc 32.5 g/dl (32-36); Mean Corpuscular Volume 92.1 fl (80-100); Mean Platelet Volume 10.8 fl (7.4-10.4); Platelet Count Result 204 k/mm3 (150-375); Red Blood Count 3.67 M/mm3 (4.6-6.20); Red Cell Distribution Width 13.9 % (11.5-14.5); White Blood Count 6.9 K/mm3 (4.5-10.0)
[2024-02-15] MEDS: CALCIUM CARBONATE (OSCAL) 500 MG TABLET 1000 MG PO (09:41)
[2024-02-15] MEDS: OPTI-GEN TAB 1 TABLET PO ×2 (09:41→17:30)
[2024-02-15] MEDS: PANTOPRAZOLE 40 MG TABLET PO ×2 (09:42→20:14)
[2024-02-15] MEDS: CHOLECALCIFEROL 1,000 UNITS TABLET 1000 UNITS PO (09:42)
[2024-02-15 09:43] VITALS: PULSE 83
[2024-02-15] MEDS: METOPROLOL TARTRATE 25 MG TABLET PO ×2 (09:43→20:14)
[2024-02-15 12:01] LABS: Anion Gap 5 mmol/L (4-12); Blood Urea Nitrogen 8 mg/dL (9-20); Calcium 8.3 mg/dL (8.4-10.2); Carbon Dioxide 20 mmol/L (22-30); Chloride 109 mmol/L (98-107); Estimated CRCL calculation 47 ml/min; Estimated Glomerular Filt Rate > 60; Glucose 80 mg/dL (65-110); Potassium 4.1 mmol/L (3.4-5.0); Sodium 134 mmol/L (137-145)
[2024-02-15 14:00] VITALS: BP 132/70; PULSE 72; RESP 18; TEMP 36.8; O2SAT 100
[2024-02-15] MEDS: ACETAMINOPHEN 325 MG TABLET 650 MG PO (19:35)
[2024-02-15 20:14] VITALS: PULSE 60
[2024-02-15 22:00] VITALS: BP 132/73; PULSE 60; RESP 21; TEMP 36.4; O2SAT 100
[2024-02-16 06:00] VITALS: BP 149/72; PULSE 61; RESP 21; TEMP 36.2; O2SAT 100
[2024-02-16 07:05] LABS: Hemoglobin 11.9 g/dL (14.0-18.0); Mean Corpuscular HGB Conc 32.2 g/dl (32-36); Mean Corpuscular Hemoglobin 29.8 pg (26-34); Mean Corpuscular Volume 92.7 fl (80-100); Mean Platelet Volume 11.9 fl (7.4-10.4); Platelet Count Result 192 k/mm3 (150-375); Red Blood Count 3.99 M/mm3 (4.6-6.20); Red Cell Distribution Width 13.7 % (11.5-14.5); White Blood Count 7.9 K/mm3 (4.5-10.0)
[2024-02-16 07:39] LABS: Anion Gap 6 mmol/L (4-12); Blood Urea Nitrogen 7 mg/dL (9-20); Calcium 8.9 mg/dL (8.4-10.2); Carbon Dioxide 18 mmol/L (22-30); Chloride 109 mmol/L (98-107); Estimated CRCL calculation 53 ml/min; Estimated Glomerular Filt Rate > 60; Glucose 86 mg/dL (65-110); Sodium 133 mmol/L (137-145)
[2024-02-16] MEDS: OPTI-GEN TAB 1 TABLET PO ×2 (08:08→17:51)
[2024-02-16] MEDS: CALCIUM CARBONATE (OSCAL) 500 MG TABLET 1000 MG PO (08:08)
[2024-02-16] MEDS: PANTOPRAZOLE 40 MG TABLET PO ×2 (08:08→21:08)
[2024-02-16] MEDS: CHOLECALCIFEROL 1,000 UNITS TABLET 1000 UNITS PO (08:08)
[2024-02-16 08:11] VITALS: PULSE 61
[2024-02-16] MEDS: METOPROLOL TARTRATE 25 MG TABLET PO ×2 (08:11→21:08)
--- NOTE | 2024-02-16 11:18 | WPDNEURCNPN ---
Assessment and Plan Assessment and plan (1) Atrial fibrillation: Code(s): I48.91 - Unspecified atrial fibrillation Status: Acute (2) Acute confusion: Code(s): R41.0 - Disorientation, unspecified Status: Acute Plan 1. Change in the mental status with negative CT scan of the head and normal MRI of the brain [place] to have B12, folate and T4 checked in addition to the EEG. He has echocardiogram has already been done which documented left atrial chamber dimensions severely enlarged with right atrial chamber mildly enlarged and severe aortic valve calcification and moderate to severe aortic valve stenosis with peak velocity of 294 and moderate mitral valve regurgitation, will benefit from the cardiology consultation for the further recommendation before any long-term recommendations are made with the diagnosis. Consult date: 02/16/24 HPI: Sukhwinder Blanco is a 88 year old male Admitted to the hospital through the emergency room where he was brought by EMS for the complaints of change in the mental status. At the time of this visit is residing at local [facility] while his home is reportedly being remodeled he was not sure how he got to the emergency department and also he was unsure who called the EMS he was afraid of what was going around him though he did not complain of any weakness or numbness . he has been taking only metoprolol 25mg b.i.d. and pantoprazole 40mg q.12 hours in addition to vitamin and calcium supplements, is not reportedly allergic to any medication. he does have a history of CABG in the past, history of years smoked 40 with smoking pack years 40 but at present is a former smoker and former alcohol intaker, initial examination in the emergency room grossly nonfocal though he appeared to be somewhat anxious, his vital signs were normal, CBC was normal, basic metabolic panel was normal,, and the drug screen was negative, chest x-ray revealed no acute parent committees disease, CT scan revealed no evidence of bleed or hydrocephalus, EKG was normal in addition to question about atrial fibrillation he was found to have low magnesia, MRI of the brain documented 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 on the basis of chronic small vessel ischemic changes and chest x-ray was negative Review of Systems Review of Systems: All systems reviewed & are unremarkable except as noted in HPI and below [facility] Surgical History Surgical History Hx of CABG Social History Social History Smoking packs per day: 1 Smoking cigarettes per day: 20.0 Years smoked: 40 Smoking pack-years: 40.00 Smoking status: Former smoker Additional smoking assessment comments: QUIT SMOKING ABOUT 54YO Alcohol intake: never Substance use: never Do You Feel Safe in your Home?: Yes Lack of Transportation: No Lack of Food: Never True Current Housing: I Have Housing Concerned About Future Housing: No Difficulty Paying Gas/Electric Bills: No Difficulty Paying for Meds: No Currently Unemployed: No Education: Grade School Difficulty w/ Childcare or Family Care: No Spiritual care concerns: No Meds Home Medications and Allergies Home Medications Medication Instructions Recorded Confirmed Type acetaminophen 650 mg tablet 650 mg PO Q6H PRN Pain (Scale 04/03/23 02/14/24 History Score 1-3) alendronate 70 mg tablet 70 mg PO WEEKLY 04/03/23 02/14/24 History benzocaine 20 % topical ointment 1 applic topical Q4H PRN Rectal 04/03/23 02/14/24 Rx (Americaine) Pain #1 g calcium carbonate 500 mg calcium 1,000 mg PO DAILY 04/03/23 02/14/24 History (1,250 mg) tablet cholecalciferol (vitamin D3) 25 1,000 unit PO DAILY 04/03/23 02/14/24 History mcg (1,000 unit) capsule (Vitamin D3) metoprolol tartrate 25 mg tablet 25 mg PO BID 04/03/23 02/14/24 History pantoprazole 40 mg tablet,delayed 40 m
[2024-02-16 14:00] VITALS: BP 181/87; PULSE 70; RESP 16; TEMP 37; O2SAT 100
[2024-02-16] MEDS: ACETAMINOPHEN 325 MG TABLET 650 MG PO (14:20)
--- NOTE | 2024-02-16 15:01 | PM.IMPN ---
Progress Note: A&P Assessment and Plan (1) Altered mental status: Qualifiers: Altered mental status type: unspecified Qualified Code(s): R41.82 - Altered mental status, unspecified Code(s): R41.82 - Altered mental status, unspecified Status: Acute Assessment and Plan: Patient continues to be pleasantly confused. He answers questions appropriately however throughout exam he is noticeably confused asking repeatedly if he is in [facility]. VS remain stable. Labs without leukocytosis, mild anemia. CMP unremarkable. No recent records to compare. EKG with atrial fibrillation and no significant ST changes. Known history of afib. Head CT with no acute intracranial process and age related changes. CXR with no cardiopulmonary abnormality. Urine drug screen negative. Alcohol negative. 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 neurology consulted for pontine disease (2) Atrial fibrillation: Code(s): I48.91 - Unspecified atrial fibrillation Status: Acute Assessment and Plan: In a previous cardiology note they stated that there was likely concern or at least a relative contraindication to anticoagulation since he remembers being on apixaban in the past and his physician at the [facility] stopped it for some reason. Patient was noted to be tachycardic early this morning into the 120s. Restarted the home metoprolol 25 mg BID and heart rate has remained stable. Metoprolol 25 mg BID Subjective Date/time seen: 02/16/24 15:01 Interval history: 88 year old male with past medical history of longstanding coronary artery disease s/p CABG and chronic atrial fibrillation presenting to the hospital for confusion. Patient continues to be pleasantly confused. He is A&O x3 this am, in no distress. Thinks he would be returning to the [facility] at d/c. Neurology consulted and recommended cardiology consult prior to further neuro work up. Cardiology consulted for clearance to d/c, although his ECHO was abnormal, his previous ECHO seemed to be much the same. May not require further intervention at this time but would appreciate the final guidance of cardiology. Placement has been secured, hopeful to d/c tomorrow. Review of Systems Review of Systems: All systems reviewed & are unremarkable except as noted in HPI and below ROS unobtainable: Yes unobtainable due to mental status ( confusion) Exam Narrative: General: male in no acute distress who is nontoxic appearing, lying in bed. HEENT: Normocephalic. Atraumatic. PERRLA, EOMI Chest: Lungs are clear to auscultation bilaterally. No wheezes or crackles. CV: RRR. S1/S2. Systolic murmur. No gallops, or rubs. Abd: Abdomen was soft. Nontender. Nondistended. Positive bowel sounds. Ext: No clubbing, cyanosis, or edema. 2+ DP pulses bilaterally. Neuro: Patient is pleasantly confused. Speech is clear. Psych: Normal mood and affect. Patient is pleasant and cooperative. Skin: Warm and dry. No rashes noted. Objective Data Vital Signs Vital Signs: Vital Signs - 24 hr 02/15/24 20:14 02/15/24 22:00 02/16/24 06:00 Temperature 97.6 F 97.2 F L Pulse Rate 60 60 61 Respiratory Rate 21 H 21 H Blood Pressure 132/73 149/72 H Pulse Oximetry 100 100 Oxygen Delivery 02/16/24 08:11 02/16/24 08:00 02/16/24 14:00 Temperature 98.6 F Pulse Rate 61 70 Respiratory Rate 16 Blood Pressure 181/87 H Pulse Oximetry 100 Oxygen Delivery Room Air Intake/Output Intake/Output: Intake & Output 02/13/24 02/14/24 02/15/24 02/16/24 23:59 23:59 23:59 23:59 Intake Total 2049 780 1080 Output Total 200 Balance 2049 580 1080 Meds/Results Medications: Active Medications Generic Name Dose Route Start Last Admin Trade Name Freq PRN Reason Stop Dose Admin Acetaminophen 650 mg 02/15/24 08:47 02/16/24 14:20 Acetaminophen 325 Mg Tab
[2024-02-16 20:14] VITALS: BP 154/79; PULSE 64; RESP 18; TEMP 36.4; O2SAT 99
[2024-02-16 21:08] VITALS: PULSE 64
[2024-02-17 04:05] VITALS: BP 157/71; PULSE 68; RESP 16; TEMP 36.6; O2SAT 98
[2024-02-17] MEDS: ACETAMINOPHEN 325 MG TABLET 650 MG PO ×2 (04:17→12:00)
[2024-02-17 06:20] LABS: Hematocrit 36.1 % (42.0-52.0); Hemoglobin 11.8 g/dL (14.0-18.0); Mean Corpuscular HGB Conc 32.7 g/dl (32-36); Mean Corpuscular Hemoglobin 29.7 pg (26-34); Mean Corpuscular Volume 90.9 fl (80-100); Mean Platelet Volume 10.7 fl (7.4-10.4); Platelet Count Result 194 k/mm3 (150-375); Red Blood Count 3.97 M/mm3 (4.6-6.20); Red Cell Distribution Width 13.9 % (11.5-14.5); White Blood Count 7.2 K/mm3 (4.5-10.0)
[2024-02-17 06:38] LABS: Anion Gap 4 mmol/L (4-12); Blood Urea Nitrogen 7 mg/dL (9-20); Calcium 8.7 mg/dL (8.4-10.2); Carbon Dioxide 23 mmol/L (22-30); Chloride 107 mmol/L (98-107); Estimated CRCL calculation 47 ml/min; Estimated Glomerular Filt Rate > 60; Glucose 83 mg/dL (65-110); Potassium 3.7 mmol/L (3.4-5.0); Sodium 134 mmol/L (137-145)
--- NOTE | 2024-02-17 07:26 | PM.CNCAR ---
Assessment and Plan Assessment and plan (1) Aortic stenosis: Code(s): I35.0 - Nonrheumatic aortic (valve) stenosis Status: Acute Assessment and Plan: Moderate to severe aortic valve stenosis with a peak velocity of 294 cm/s, mean gradient of 20 mmHg, and aortic valve area of 0.7 cm2. This is not new or changed from previous echo from March 2023. He is asymptomatic and has no clinical or objective evidence of decompensated heart failure. Outpatient follow up with his server systems administrator at the [facility]. Recommend blood pressure control with caution to avoid hypotension. Continue beta wendy (2) Atrial fibrillation: Code(s): I48.91 - Unspecified atrial fibrillation Status: Acute Assessment and Plan: Probably chronic atrial fibrillation. Heart rate well controlled. He has been anticoagulated in the past but his physicians at the [facility] discontinued Eliquis for a reason he cannot recall. Would not resume anticoagulation at this time. (3) CAD (coronary artery disease): Code(s): I25.10 - Atherosclerotic heart disease of [place] coronary artery without angina pectoris Status: Acute Assessment and Plan: Longstanding history of CAD with remote CABG. He denies any anginal symptoms. Unsure why he is not on ASA or statin but would recommend starting these. History of Present Illness History of Present Illness Consult date/time: 02/17/24 07:26 Requesting physician: Yu Zhao APRN Consult reason: Other (abnormal echo) Reason For Visit: AMS, Hypomagnesemia Narrative: Sukhwinder Blanco is an 88 year old male with a history of coronary artery disease with remote bypass grafting, chronic atrial fibrillation, and aortic stenosis. He is confused and cannot tell me why he is hospitalized but the medical record indicates he was brought to the emergency room because of altered mental status. I have been asked to see him because of abnormal echocardiogram findings, presumably the aortic stenosis which is not a new finding. He denies any chest pain, shortness of breath, swelling, palpitations, syncope, or pre-syncope. He is currently lying comfortably in bed and remains pleasantly confused. Review of Systems Review of Systems: ROS unobtainable: Yes unobtainable due to mental status [facility] Surgical History Surgical History Hx of CABG Social History Social History Smoking packs per day: 1 Smoking cigarettes per day: 20.0 Years smoked: 40 Smoking pack-years: 40.00 Smoking status: Former smoker Additional smoking assessment comments: QUIT SMOKING ABOUT 54YO Alcohol intake: never Substance use: never Do You Feel Safe in your Home?: Yes Lack of Transportation: No Lack of Food: Never True Current Housing: I Have Housing Concerned About Future Housing: No Difficulty Paying Gas/Electric Bills: No Difficulty Paying for Meds: No Currently Unemployed: No Education: Grade School Difficulty w/ Childcare or Family Care: No Spiritual care concerns: No Meds Home Medications and Allergies Home Medications Medication Instructions Recorded Confirmed Type acetaminophen 650 mg tablet 650 mg PO Q6H PRN Pain (Scale 04/03/23 02/14/24 History Score 1-3) alendronate 70 mg tablet 70 mg PO WEEKLY 04/03/23 02/14/24 History benzocaine 20 % topical ointment 1 applic topical Q4H PRN Rectal 04/03/23 02/14/24 Rx (Americaine) Pain #1 g calcium carbonate 500 mg calcium 1,000 mg PO DAILY 04/03/23 02/14/24 History (1,250 mg) tablet cholecalciferol (vitamin D3) 25 1,000 unit PO DAILY 04/03/23 02/14/24 History mcg (1,000 unit) capsule (Vitamin D3) metoprolol tartrate 25 mg tablet 25 mg PO BID 04/03/23 02/14/24 History pantoprazole 40 mg tablet,delayed 40 mg PO Q12H 04/03/23 02/14/24 History release vitamins A,C,[id number] 2,148 1 tablet PO BID 04/03/23 0
[2024-02-17] MEDS: CHOLECALCIFEROL 1,000 UNITS TABLET 1000 UNITS PO (09:07)
[2024-02-17] MEDS: OPTI-GEN TAB 1 TABLET PO (09:07)
[2024-02-17] MEDS: PANTOPRAZOLE 40 MG TABLET PO (09:07)
[2024-02-17] MEDS: CALCIUM CARBONATE (OSCAL) 500 MG TABLET 1000 MG PO (09:07)
[2024-02-17 09:08] VITALS: PULSE 76
[2024-02-17] MEDS: METOPROLOL TARTRATE 25 MG TABLET PO (09:08)
--- NOTE | 2024-02-17 10:21 | WPDNEUROPN ---
Progress Note: A&P Assessment and Plan (1) Cognitive impairment: Code(s): R41.89 - Other symptoms and signs involving cognitive functions and awareness Status: Acute Plan Ms. Blanco is an year old male with a history of CAD, atrial fibrillation presenting for evaluation of altered mental status. It seems that he has an ongoing history of confusion and inability to care for himself, so it seems that he is actually at his baseline currently. MRI brain showed chronic small vessel disease but no acute findings. Lab work has all been unrevealing as well. Could be an ongoing dementia process, for which he can have outpatient evaluation. Subjective Date/time seen: 02/17/24 10:21 Interval history: Ms. Blanco is an year old male with a history of CAD, atrial fibrillation presenting for evaluation of altered mental status. Patient was residing in a hotel, and for some reason patient was brought into the ER for confusion, although details of exactly what the inciting event was are unclear. Patient does not know why he was brought to the hospital and is not able to provide much history. CT head done in the ER showed moderate diffuse volume loss. UA, UDS, electrolytes, WBC, alcohol level, TSH, B12, folate were all within normal range. MRI brain showed extensive white matter disease. He was found to have aortic stenosis, which is new -- Cardiology has been consulted. It's not clear what patient's baseline is but it seems that he has a history of confusion, and has been unable to care for himself. Per chart review, son reports that patient has been more forgetful lately, but he is overall unsure of patient's medical history. There also seem to be some concerns for depression. Per patient's RN, patient told her that he 'faked a fall' at the hotel so that he would be taken to the hospital so that his living situation could be coordinated. She also discussed with patient's landlord, and patient has had cognitive issues for several years. It seems that patient is at his baseline. Review of Systems Review of Systems: All systems reviewed & are unremarkable except as noted in HPI and below Exam Const: General: comfortable and no acute distress HENMT: Mouth: Yes moist mucous membranes Eyes: Pupils: Equal, round and reactive pupils present EOM: EOMs intact bilaterally Skin: General skin exam: normal color Neuro: Other: AOx3, Pupils equal and reactive bilaterally, EOMI, face symmetric, facial sensation intact, tongue protrudes midline, palate midline. Strength is symmetric and age appropriate. Sensation is symmetric bilaterally. FNF normal bilaterally. Language comprehension and fluency intact. Gait deferred. Extrem: General: normal to inspection Psych: Affect: normal affect Objective Data Vital Signs Vital Signs: Vital Signs - 24 hr 02/16/24 14:00 02/16/24 20:14 02/16/24 21:08 Temperature 37.0 C 36.4 C Pulse Rate 70 64 64 Respiratory Rate 16 18 Blood Pressure 181/87 H 154/79 H Pulse Oximetry 100 99 Oxygen Delivery 02/16/24 20:00 02/17/24 04:05 02/17/24 09:08 Temperature 36.6 C Pulse Rate 68 76 Respiratory Rate 16 Blood Pressure 157/71 H Pulse Oximetry 98 Oxygen Delivery Room Air 02/17/24 08:00 Temperature Pulse Rate Respiratory Rate Blood Pressure Pulse Oximetry Oxygen Delivery Room Air Intake/Output Intake/Output: Intake & Output 02/14/24 02/15/24 02/16/24 02/17/24 23:59 23:59 23:59 23:59 Intake Total 0 780 1580 490 Output Total 200 Balance 0 580 1580 490 Meds/Results Medications: Active Medications Generic Name Dose Route Start Last Admin Trade Name Freq PRN Reason Stop Dose Admin Acetaminophen 650 mg 02/15/24 08:47 02/17/24 04:17 Acetaminophen 325 Mg Tablet PO 650 mg Q6H PRN Administration Pain (Scale Score 1-3) Alendronate Sodium 70 mg 02/15/24 09:00 Alendronate Sodium 70 Mg Tablet PO WEEKLY CHELSEY Calcium Carbon
--- NOTE | 2024-02-17 11:46 | PM.DS ---
DS: Admitting Diagnosis Discharge Date 02/17/24 Admitting Diagnosis altered mental status DS: Discharge Diagnosis Discharge Diagnosis (1) Altered mental status: Qualifiers: Altered mental status type: unspecified Qualified Code(s): R41.82 - Altered mental status, unspecified Code(s): R41.82 - Altered mental status, unspecified Status: Resolved Assessment and Plan: Patient continues to be pleasantly confused. He answers questions appropriately however throughout exam he is noticeably confused asking repeatedly if he is in [facility]. VS remain stable. Labs without leukocytosis, mild anemia. CMP unremarkable. No recent records to compare. EKG with atrial fibrillation and no significant ST changes. Known history of afib. Head CT with no acute intracranial process and age related changes. CXR with no cardiopulmonary abnormality. Urine drug screen negative. Alcohol negative. 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 neurology cleared for d/c (2) Atrial fibrillation: Code(s): I48.91 - Unspecified atrial fibrillation Status: Chronic Assessment and Plan: In a previous cardiology note they stated that there was likely concern or at least a relative contraindication to anticoagulation since he remembers being on apixaban in the past and his physician at the [facility] stopped it for some reason. Patient was noted to be tachycardic early this morning into the 120s. Restarted the home metoprolol 25 mg BID and heart rate has remained stable. Metoprolol 25 mg BID cardiology consulted for clearance for d/c will start on daily ASA at d/c as unknown why he is already not on anticoagulation from [place] providers. DS: Summary Hospital Course Hospital Course: Patient is an 88 year old male with PMH of longstanding coronary artery disease s/p CABG, and chronic atrial fibrillation presenting to the hospital for confusion. Patient typically follows at [facility]. In a previous cardiology note they stated that there was likely concern or at least a relative contraindication to anticoagulation since he remembers being on apixaban in the past and his physician at the [facility] stopped it for some reason. Restarted the home metoprolol 25 mg BID and heart rate has remained stable. Will d/c on daily ASA. He is pleasantly confused but has remained A&O x3. Neurology consulted regarding MRI results and he is clear for d/c from their perspective as well. He has been approved for placement at [place] and will d/c there today. Status at Discharge Functional status at discharge: independent ambulation Overall status at discharge: patient is back to baseline Exam Narrative: General: male in no acute distress who is nontoxic appearing, lying in bed. HEENT: Normocephalic. Atraumatic. PERRLA, EOMI Chest: Lungs are clear to auscultation bilaterally. No wheezes or crackles. CV: RRR. S1/S2. Systolic murmur. No gallops, or rubs. Abd: Abdomen was soft. Nontender. Nondistended. Positive bowel sounds. Ext: No clubbing, cyanosis, or edema. 2+ DP pulses bilaterally. Neuro: A&O x3. Patient is pleasantly confused. Speech is clear. Psych: Normal mood and affect. Patient is pleasant and cooperative. Skin: Warm and dry. No rashes noted. DS: Data Data Completed and Pending Labs on day of discharge: Labs from last 24 hours 02/17/24 06:00 WBC 7.2 RBC 3.97 L Hgb 11.8 L Hct 36.1 L MCV 90.9 MCH 29.7 MCHC 32.7 RDW 13.9 Plt Count 194 MPV 10.7 H Sodium 134 L Potassium 3.7 Chloride 107 Carbon Dioxide 23 Anion Gap 4 L BUN 7 L Creatinine 0.80 Estim Creat Clear Calc 47 Estimated GFR > 60 Glucose 83 Calcium 8.7 Discharge Plan Discharge Attending physician on discharge: Bobby Gregory Consulting providers: Tiffani Mackey; Garfield Rosenthal; Sidney Montero Discharging Clinician: Lewis Zhao
[2024-02-17 12:55] LABS: SARS-CoV-2 RNA PCR Negative (Negative)
== END 2024-02-17 13:32 | DRG 948 ==
LOC: ANHED 20:43 → ANH3MED 21:56
PROVIDERS: Student in an Organized Health Care Education/Training Program; Admitting Provider Internal Medicine; Emergency Provider Physician Assistant; Visit Provider Nurse Practitioner
DX: R41.82 Altered mental status, unspecified (principal); I48.20 Chronic atrial fibrillation, unspecified; R41.89 Other symptoms and signs involving cognitive functions and awareness; E83.42 Hypomagnesemia; I25.10 Atherosclerotic heart disease of native coronary artery without angina pectoris; I35.0 Nonrheumatic aortic (valve) stenosis; Z20.822 Contact with and (suspected) exposure to COVID-19; Z95.1 Presence of aortocoronary bypass graft; Z87.891 Personal history of nicotine dependence
CPT/HCPCS: 36415; 70450; 70551; 71045; 80048; 80053; 80307; 81001; 82550; 82607; 82746; 83605; 83735; 84443; 85025; 85027; 85610; 85730; 87635; 93005; 93306; 96361; 96365; 97161; 99285; A9270; G0378; J3475; J7030